=== PATIENT | female | born 1960 | race American Indian/Alaskan Native ===

== ENCOUNTER 2017-05-09 07:33 | Day surgery (SDC) | payer OTHER ==
--- NOTE | 2017-05-09 09:10 | CP.SDSHP ---
Same Day Surgery H & P - History Proposed Procedure: COLONSCOPY Pre-Op Diagnosis: SEE NOTES - Previous Medical/Surgical History Cardiac: Hypertension Misc: Other Pain: 2.Mild Pain - Allergies Allergies: Allergies FISH Allergy (Verified 05/09/17 08:14) SWELLING BBQ SAUCE Allergy (Uncoded 05/09/17 08:14) SWELLING - Physical Exam General Appearance: N Vital Signs: Vital Signs 05/09/17 08:00 Temperature 97.1 F L Pulse Rate 57 L Respiratory 19 Rate Blood Pressure 142/73 O2 Sat by Pulse 100 Oximetry Mental Status: Alert & Oriented x3 Neuro: WNL Heart: Other Lungs: WNL GI: WNL - {Optional Preform as Required} Breast: WNL Abdomen: Other Rectal: WNL Integument: WNL : WNL Ortho: WNL ENT: WNL - Impression Pt. Evaluated Today:Candidate for Anesthesia & Procedure: Yes - Date & Time Time: 09:11 Short Stay Discharge - Short Stay Discharge Admitting Diagnosis/Reason for Visit: ENCOUNTER FOR SCREENING FOR MALIGNANT NEOPLASM OF Disposition: HOME/ ROUTINE
[2017-05-09] MEDS ORDERED: Propofol 10 mg/ml Inj (20 ML) ONE ×2 (09:12)
[2017-05-09 09:37] VITALS: TEMP 97.7
[2017-05-09] MEDS ORDERED: Belladonna-Phenobarbital PO ONE (09:50)
[2017-05-09 10:11] VITALS: RESP 16; O2SAT 96
[2017-05-09 10:41] VITALS: BP 137/76; PULSE 59
== END 2017-05-09 10:35 | disposition home or self-care (01) ==
LOC: C.ENDO 07:33
PROVIDERS: ATTEND Specialist
DX: Z12.11 Encounter for screening for malignant neoplasm of colon (principal); K64.8 Other hemorrhoids; K58.9 Irritable bowel syndrome, unspecified
CPT/HCPCS: 45380; 88305; J2704

== ENCOUNTER 2018-05-08 06:36 | Day surgery (SDC) | payer OTHER ==
--- NOTE | 2018-05-08 07:56 | CP.SDSHP ---
Same Day Surgery H & P - History Proposed Procedure: COLONSCOPY Pre-Op Diagnosis: SEE NOTES - Previous Medical/Surgical History Cardiac: Hypertension Misc: Other Pain: 2.Mild Pain - Allergies Allergies: Allergies BBQ SAUCE Allergy (Uncoded 05/08/18 06:50) SWELLING - Physical Exam General Appearance: n Vital Signs: Vital Signs 05/08/18 06:57 Temperature 97 F L Pulse Rate 50 L Respiratory 19 Rate Blood Pressure 123/66 O2 Sat by Pulse 99 Oximetry Mental Status: Alert & Oriented x3 Neuro: WNL Heart: Other Lungs: WNL GI: WNL - {Optional Preform as Required} Breast: WNL Abdomen: Other Rectal: Other Integument: WNL : WNL Ortho: WNL ENT: WNL - Impression Pt. Evaluated Today:Candidate for Anesthesia & Procedure: Yes - Date & Time Time: 07:56 Short Stay Discharge - Short Stay Discharge Admitting Diagnosis/Reason for Visit: SCREENING Disposition: HOME/ ROUTINE
[2018-05-08] MEDS ORDERED: Propofol 10 mg/ml Inj (20 ML) ONE ×2 (08:03→08:16)
[2018-05-08 08:04] VITALS: O2SAT 100
[2018-05-08] MEDS ORDERED: Belladonna-Phenobarbital PO ONE (08:30)
[2018-05-08 08:34] VITALS: TEMP 97.1
[2018-05-08 09:58] VITALS: BP 129/65; PULSE 50; RESP 13
== END 2018-05-08 09:30 | disposition home or self-care (01) ==
LOC: C.ENDO 06:36
PROVIDERS: ATTEND Specialist
DX: Z12.11 Encounter for screening for malignant neoplasm of colon (principal); K64.8 Other hemorrhoids; K58.9 Irritable bowel syndrome, unspecified; I10 Essential (primary) hypertension
CPT/HCPCS: 45380; 88305; J2704